=== PATIENT | female | born 1995 | race Caucasian/White ===

== ENCOUNTER 2018-01-24 19:59 | Emergency (ER) | payer BC, OTHER ==
[2018-01-24] MEDS ORDERED: ONDANSETRON 4 MG TAB.RAPDIS PO ONE (20:25)
--- NOTE | 2018-01-24 20:25 | ER Document Report ---
ED Medical Screen (RME) - General Chief Complaint: Diarrhea Stated Complaint: DIARREA Time Seen by Provider: 01/24/18 20:23 Mode of Arrival: Ambulatory Information source: Patient Notes: Patient is a 22-year-old female who presents with chief complaint of vomiting and diarrhea. Patient reports over the last 2 weeks patient has vomited or had diarrhea at least twice a day. Patient reports she is able to hold down water or Gatorade. Patient reports that she has a history of IBS. Patient has been seen at another emergency department, reportedly had a full workup and was told that she has "adult colic". Patient reports last time she vomited was this morning, patient reports having diarrhea 2 hours ago. Exam: Abdomen soft, nontender. Lung sounds clear to auscultation. I have greeted and performed a rapid initial assessment of this patient. A comprehensive ED assessment and evaluation of the patient, analysis of test results and completion of the medical decision making process will be conducted by additional ED providers. Dictation of this chart was performed using voice recognition software; therefore, there may be some unintended grammatical errors. TRAVEL OUTSIDE OF THE [place] IN LAST 30 DAYS: No - Related Data Allergies/Adverse Reactions: cefdinir [From Omnicef] Allergy (Verified 01/24/18 20:06) latex Allergy (Verified 01/24/18 20:06) morphine Allergy (Verified 01/24/18 20:06) nickel Allergy (Verified 01/24/18 20:06) prednisone Allergy (Verified 01/24/18 20:06) red dye Allergy (Verified 01/24/18 20:06) tramadol Allergy (Verified 01/24/18 20:06)
[2018-01-24 21:47] LABS: ABSOLUTE EOSINOPHILS # (AUTO) 0.1 10^3/uL (0.0-0.6); ABSOLUTE LYMPHOCYTES (AUTO) 3.1 10^3/uL (0.5-4.7); ABSOLUTE MONOCYTES (AUTO) 0.7 10^3/uL (0.1-1.4); ABSOLUTE NEUT (AUTO) 5.5 10^3/uL (1.7-8.2); BASOPHILS % (AUTO) 0.5 % (0-2); EOSINOPHILS % (AUTO) 1.5 % (0-6); HEMATOCRIT 39.6 % (36.0-47.0); HEMOGLOBIN 13.2 g/dL (12.0-15.5); LYMPHOCYTES % (AUTO) 32.8 % (13-45); MEAN CORPUSCULAR HEMOGLOBIN 29.5 pg (27.0-33.4); MEAN CORPUSCULAR HGB CONC 33.3 g/dL (32.0-36.0); MEAN CORPUSCULAR VOLUME 89 fl (80-97); MONOCYTES % (AUTO) 7.7 % (3-13); PLATELET COUNT 424 10^3/uL (150-450); RED BLOOD COUNT 4.48 10^6/uL (3.72-5.28); RED CELL DISTRIBUTION WIDTH 13.1 % (11.5-14.0); SEGMENTED NEUTROPHILS % (AUTO) 57.5 % (42-78); TOTAL CELLS COUNTED % (AUTO) 100 %; WHITE BLOOD COUNT 9.6 10^3/uL (4.0-10.5)
[2018-01-24 21:57] LABS: APPEARANCE,URINE CLEAR; BILIRUBIN,URINE NEGATIVE (NEGATIVE); COLOR,URINE YELLOW; GLUCOSE, URINE NEGATIVE (NEGATIVE); KETONES,URINE TRACE mg/dL (NEGATIVE); LEUKOCYTE ESTERASE,URINE NEGATIVE (NEGATIVE); NITRITE,URINE NEGATIVE (NEGATIVE); PROTEIN,URINE NEGATIVE (NEGATIVE); URINE SPECIFIC GRAVITY 1.026; UROBILINOGEN,URINE NEGATIVE mg/dL (<2.0)
[2018-01-24 22:05] LABS: ALANINE AMINOTRANSFERASE 24 U/L (9-52); ALBUMIN 3.9 g/dL (3.5-5.0); ALKALINE PHOSPHATASE 50 U/L (38-126); ANION GAP 13 (5-19); ASPARTATE AMINO TRANSFERASE 26 U/L (14-36); BILIRUBIN,DIRECT 0.2 mg/dL (0.0-0.4); BILIRUBIN,TOTAL 0.2 mg/dL (0.2-1.3); BLOOD UREA NITROGEN 10 mg/dL (7-20); CALCIUM 9.7 mg/dL (8.4-10.2); CARBON DIOXIDE 22 mmol/L (22-30); CHLORIDE 108 mmol/L (98-107); GLUCOSE 92 mg/dL (75-110); LIPASE 221.5 U/L (23-300); POTASSIUM 3.9 mmol/L (3.6-5.0); SODIUM 142.8 mmol/L (137-145); TOTAL PROTEIN 6.8 g/dL (6.3-8.2)
--- NOTE | 2018-01-25 03:11 | ER Document Report ---
ED GI/ - General Chief Complaint: Diarrhea Stated Complaint: DIARRHEA Time Seen by Provider: 01/24/18 20:23 Mode of Arrival: Ambulatory TRAVEL OUTSIDE OF THE [place] IN LAST 30 DAYS: No - HPI Patient complains to provider of: Other - 20-year-old female with history of IBS as well as anxiety since for evaluation of recurrent episodes of crampy abdominal pain and subsequent loose stool, she also notes that there is a staccato buildup of worsening bowel movements abdominal cramps and some nausea associated with it. She has been evaluated for this over the last 3 months several times without any obvious cause being identified. She is normally followed in [place] for her symptoms but decided to present here for another opinion. Nothing is seen to make it any better, eating seems to make it worse. - Related Data Allergies/Adverse Reactions: cefdinir [From Omnicef] Allergy (Verified 01/24/18 20:06) latex Allergy (Verified 01/24/18 20:06) morphine Allergy (Verified 01/24/18 20:06) nickel Allergy (Verified 01/24/18 20:06) prednisone Allergy (Verified 01/24/18 20:06) red dye Allergy (Verified 01/24/18 20:06) tramadol Allergy (Verified 01/24/18 20:06) Past Medical History - General Information source: Patient - Social History Smoking Status: Never Smoker Frequency of alcohol use: Occasional Drug Abuse: None Family History: None Patient has suicidal ideation: No Patient has homicidal ideation: No Neurological Medical History: Reports: Hx Migraine Renal/ Medical History: Denies: Hx Peritoneal Dialysis GI Medical History: Reports: Hx Gastroesophageal Reflux Disease Past Surgical History: Reports: Hx Tonsillectomy - in kindergarten Review of Systems - Review of Systems -: Yes All other systems reviewed and negative Physical Exam - Vital signs Vitals: Temp Pulse Resp BP Pulse Ox 98.6 F 103 H 14 111/78 96 01/25/18 03:27 01/25/18 03:27 01/25/18 03:27 01/25/18 03:27 01/25/18 03:27 - General General appearance: Appears well In distress: None - HEENT Head: Normocephalic Eyes: Normal Conjunctiva: Normal - Respiratory Respiratory status: No respiratory distress, Tripod position Chest status: Nontender Breath sounds: Normal Chest palpation: Normal - Cardiovascular Rhythm: Regular Heart sounds: Normal auscultation Murmur: No - Abdominal Inspection: Normal Distension: No distension Bowel sounds: Normal Tenderness: Other - Diffuse tenderness without any rebound or guarding, - Back Back: Normal - Extremities General upper extremity: Normal inspection General lower extremity: Normal inspection Course - Re-evaluation Re-evalutation: 01/26/18 05:30 This well-appearing 22-year-old female presents for recurrence of abdominal pain with loose watery stools as well as nausea for which she has been evaluated multiple times per Macrina Dooley. Her constellation of symptoms could be attributed to IBS though she is frustrated with this diagnosis. Her urinalysis CMP and CBC are unremarkable at this time her abdominal examination is reassuring and not suggestive of appendicitis cholecystitis or torsion. She is not at this time. She is able to tolerate p.o. The patient's abdominal examination remained reassuring on reevaluation. Given her well appearance ability to tolerate p.o. and benign abdominal examination do not believe there is any indication for imaging at this time. Current plan will be for this patient to undergo discharge with return precautions and encouraged to follow-up, gave prescription for anti-emetics and encouraged to contact her primary physician as well as steam blocker. - Vital Signs Vital signs: Temp Pulse Resp BP Pulse Ox 98.6 F 103 H 14 111/78 96 01/25/18 03:27 01/25/18 03:27 01/25/18 03:27 01/25/18 03:27 01/25/18 03:27 - Laboratory Result Diagrams: 01/24/18 21:29 01/24/18 21:29 Laboratory results interpreted by me: 01/24/18 01/24/18 21:29 21:29 Chloride 108 H Urine Ketones TRACE H Discharge - Discharge Clinical Impression: Abdominal pain Condition: Good Disposition: HOME, SELF-CARE Instructions: Abdominal Pain ([facility]), Antinausea Medication ([facility]), Recurring Abdominal Pain, Child ([facility]) Prescriptions: Dicyclomine HCl [Bentyl 20 mg Tablet] 20 mg PO BID #20 tablet Metoclopramide HCl [Reglan 10 mg Tablet] 10 mg PO BID #20 tablet Ondansetron [Zofran Odt 4 mg Tablet] 1 - 2 tab PO Q4H PRN #15 tab.rapdis PRN Reason: For Nausea/Vomiting
[2018-01-25 03:28] VITALS: BP 111/78
== END 2018-01-25 03:28 | disposition home or self-care (01) ==
LOC: ER 19:59
DX: R10.84 Generalized abdominal pain (principal); R19.7 Diarrhea, unspecified; Z91.040 Latex allergy status; Z88.6 Allergy status to analgesic agent; Z91.09 Other allergy status, other than to drugs and biological substances
CPT/HCPCS: 99284; 36415; 83690; 84703; 85025; 80053; 81001; S0119

== ENCOUNTER → 2018-09-21 | Outpatient (CLI) | payer BC, OTHER ==
[2018-09-21 18:22] LABS: FREE T4 (FREE THYROXINE) 0.91 ng/dL (0.78-2.19)
[2018-09-21 18:35] LABS: THYROID STIMULATING HORMONE 2.71 uIU/mL (0.47-4.68)
== END ==
LOC: OD 16:26
PROVIDERS: ATTEND Obstetrics & Gynecology Gynecology
DX: N91.2 Amenorrhea, unspecified (principal); Z13.29 Encounter for screening for other suspected endocrine disorder
CPT/HCPCS: 36415; 83001; 84146; 84403; 84439; 84443

== ENCOUNTER 2018-12-29 18:43 | Emergency (ER) | payer BC, OTHER ==
[2018-12-29] MEDS ORDERED: NORMAL SALINE 1000 ML 1,000 ML IV ONE (20:42)
[2018-12-29] MEDS ORDERED: PROMETHAZINE HCL 25 MG TABLET PO ONE (20:42)
[2018-12-29] MEDS ORDERED: KETOROLAC TROMETHAMINE INJ/PF 30 MG/1 ML SDV IV ONE (20:42)
--- NOTE | 2018-12-29 20:46 | ER Document Report ---
ED General - General Chief Complaint: Fever Stated Complaint: FEVER Time Seen by Provider: 12/29/18 20:34 Notes: Patient is a 23-year-old female that comes emergency department for chief complaint of approximately 2.5 days of diarrhea, vomiting, fever/chills, body aches, headaches, mid and generalized abdominal pain. She denies cough/shortnes s of breath. She denies dysuria. She does report some pain in her flank on both sides. Past medical history includes PCOS, fibromyalgia, chronic migraines. She has not vomited today and she was able to eat earlier but she states she has had 3 episodes of loose stools today as well. She states she also had a fever earlier today. Only reported surgical history is tonsillectomy. TRAVEL OUTSIDE OF THE [place] IN LAST 30 DAYS: No - Related Data Allergies/Adverse Reactions: cefdinir [From Omnicef] Allergy (Verified 01/24/18 20:06) latex Allergy (Verified 01/24/18 20:06) morphine Allergy (Verified 01/24/18 20:06) nickel Allergy (Verified 01/24/18 20:06) prednisone Allergy (Verified 01/24/18 20:06) red dye Allergy (Verified 01/24/18 20:06) tramadol Allergy (Verified 01/24/18 20:06) Past Medical History - General Information source: Patient - Social History Smoking Status: Never Smoker Frequency of alcohol use: None Drug Abuse: None Lives with: Family Family History: None Patient has suicidal ideation: No Patient has homicidal ideation: No Neurological Medical History: Reports: Hx Migraine Renal/ Medical History: Denies: Hx Peritoneal Dialysis GI Medical History: Reports: Hx Gastroesophageal Reflux Disease Past Surgical History: Reports: Hx Tonsillectomy - in kindergarten - Immunizations Immunizations up to date: Yes Hx Diphtheria, Pertussis, Tetanus Vaccination: Yes Review of Systems - Review of Systems Constitutional: See HPI EENT: No symptoms reported Cardiovascular: No symptoms reported Respiratory: No symptoms reported Gastrointestinal: See HPI Genitourinary: No symptoms reported Female Genitourinary: No symptoms reported Musculoskeletal: No symptoms reported Skin: No symptoms reported Hematologic/Lymphatic: No symptoms reported Neurological/Psychological: No symptoms reported Physical Exam - Vital signs Vitals: Temp Pulse Resp BP Pulse Ox 98.0 F 78 17 112/61 100 12/29/18 19:23 12/29/18 19:23 12/29/18 19:23 12/29/18 19:23 12/29/18 19:23 - Notes Notes: GENERAL: Alert, interacts well. No acute distress. HEAD: Normocephalic, atraumatic. EYES: Pupils equal, round, and reactive to light. Extraocular movements intact. ENT: Oral mucosa dry, tongue midline. Oropharynx unremarkable. Airway patent. Nares patent, no nasal septal hematoma, TM's intact. NECK: Full range of motion. Supple. Trachea midline. LUNGS: Clear to auscultation bilaterally, no wheezes, rales, or rhonchi. No respiratory distress. HEART: Regular rate and rhythm. No murmur ABDOMEN: Soft, non-tender. Non-distended. Bowel sounds present in all 4 quadrants. GENITOURINARY: Deferred EXTREMITIES: Moves all 4 extremities spontaneously. No edema, normal radial and dorsalis pedis pulses bilaterally. No cyanosis. BACK: no cervical, thoracic, lumbar midline tenderness. No saddle anesthesia, normal distal neurovascular exam. Moves all extremities in full range of motion. NEUROLOGICAL: Alert and oriented x3. Normal speech. Cranial nerves II through XII grossly intact. PSYCH: Normal affect, normal mood. SKIN: Warm, dry, normal turgor. No rashes or lesions noted. Course - Re-evaluation Re-evalutation: Patient looks great on exam. Her lung exam, ENT exam, abdominal exam, general exam are all normal. Vital signs unremarkable. She is talkative and well- appearing. CBC unremarkable, bicarb slightly low at 20, urine showing elevated specific gravity but otherwise unremarkable. Consistent with dehydration from suspected viral illness. After IV fluids, patient tolerated p.o. without difficulty. Reevaluated her, she is asymptomatic. Discussed work-up, recommendations, follow-up, and return precautions in detail. Patient states satisfaction and agreement. Stable at time of discharge. - Vital Signs Vital signs: Temp Pulse Resp BP Pulse Ox 98.1 F 68 18 112/62 98 12/29/18 22:55 12/29/18 22:55 12/29/18 22:55 12/29/18 22:55 12/29/18 22:55 - Laboratory Result Diagrams: 12/29/18 20:42 12/29/18 21:01 Laboratory results interpreted by me: 12/29/18 12/29/18 12/29/18 20:42 21:01 21:05 WBC 12.5 H Hgb 11.7 L Hct 35.4 L Carbon Dioxide 20 L Ur Leukocyte Esterase TRACE H Urine Ascorbic Acid 40 H Discharge - Discharge Clinical Impression: Vomiting and diarrhea, Dehydration Fever Qualifiers: Fever type: unspecified Qualified Code(s): R50.9 - Fever, unspecified Condition: Stable Disposition: HOME, SELF-CARE Additional Instructions: Your work-up shows dehydration but no other concerning findings. Your evaluation is reassuring. This is most likely viral and should resolve with time. Rest, drink plenty fluids, take Phenergan if needed for nausea, famotidine to help your recovery, and start with bland food. Follow up with primary care. Return if you worsen -uncontrolled vomiting, severe developing pain of the abdomen, spiking fevers, or any other concerning or wo rsening symptoms. Prescriptions: Famotidine [Pepcid 20 mg Tablet] 20 mg PO BID #14 tablet Promethazine HCl [Phenergan 25 mg Tablet] 25 mg PO Q6H PRN #20 tablet PRN Reason:
[2018-12-29] MEDS ORDERED: KETOROLAC TROMETHAMINE INJ/PF 30 MG/1 ML SDV ONE (20:48)
[2018-12-29] MEDS ORDERED: PROMETHAZINE HCL INJ 25 MG/1 ML VIAL ONE (20:49)
[2018-12-29 21:29] LABS: APPEARANCE,URINE CLOUDY; BILIRUBIN,URINE NEGATIVE (NEGATIVE); COLOR,URINE AMBER; GLUCOSE, URINE NEGATIVE (NEGATIVE); KETONES,URINE NEGATIVE (NEGATIVE); LEUKOCYTE ESTERASE,URINE TRACE (NEGATIVE); NITRITE,URINE NEGATIVE (NEGATIVE); PROTEIN,URINE NEGATIVE (NEGATIVE); URINE SPECIFIC GRAVITY 1.025; UROBILINOGEN,URINE NEGATIVE mg/dL (<2.0)
[2018-12-29 21:32] LABS: ALANINE AMINOTRANSFERASE 28 U/L (9-52); ALBUMIN 4.6 g/dL (3.5-5.0); ALKALINE PHOSPHATASE 71 U/L (38-126); ANION GAP 12 (5-19); ASPARTATE AMINO TRANSFERASE 28 U/L (14-36); BILIRUBIN,DIRECT 0.3 mg/dL (0.0-0.4); BILIRUBIN,TOTAL 0.3 mg/dL (0.2-1.3); BLOOD UREA NITROGEN 12 mg/dL (7-20); CALCIUM 9.7 mg/dL (8.4-10.2); CARBON DIOXIDE 20 mmol/L (22-30); CHLORIDE 107 mmol/L (98-107); GLUCOSE 75 mg/dL (75-110); POTASSIUM 4.7 mmol/L (3.6-5.0); SODIUM 138.8 mmol/L (137-145); TOTAL PROTEIN 7.4 g/dL (6.3-8.2)
[2018-12-29 22:10] LABS: ABSOLUTE BASOPHILS # (AUTO) 0.1 10^3/uL (0.0-0.2); ABSOLUTE EOSINOPHILS # (AUTO) 0.1 10^3/uL (0.0-0.6); ABSOLUTE LYMPHOCYTES (AUTO) 3.7 10^3/uL (0.5-4.7); ABSOLUTE MONOCYTES (AUTO) 0.8 10^3/uL (0.1-1.4); ABSOLUTE NEUT (AUTO) 7.7 10^3/uL (1.7-8.2); BASOPHILS % (AUTO) 0.4 % (0-2); EOSINOPHILS % (AUTO) 1.1 % (0-6); HEMATOCRIT 35.4 % (36.0-47.0); HEMOGLOBIN 11.7 g/dL (12.0-15.5); LYMPHOCYTES % (AUTO) 29.9 % (13-45); MEAN CORPUSCULAR HEMOGLOBIN 28.4 pg (27.0-33.4); MEAN CORPUSCULAR HGB CONC 33.1 g/dL (32.0-36.0); MEAN CORPUSCULAR VOLUME 86 fl (80-97); MONOCYTES % (AUTO) 6.7 % (3-13); PLATELET COUNT 340 10^3/uL (150-450); RED BLOOD COUNT 4.13 10^6/uL (3.72-5.28); RED CELL DISTRIBUTION WIDTH 13.8 % (11.5-14.0); SEGMENTED NEUTROPHILS % (AUTO) 61.9 % (42-78); TOTAL CELLS COUNTED % (AUTO) 100 %; WHITE BLOOD COUNT 12.5 10^3/uL (4.0-10.5)
[2018-12-29 23:01] VITALS: BP 112/62
== END 2018-12-29 23:01 | disposition home or self-care (01) ==
LOC: ER 18:43
DX: R50.9 Fever, unspecified (principal); E86.0 Dehydration; R11.10 Vomiting, unspecified; R19.7 Diarrhea, unspecified
CPT/HCPCS: 99284; 96361; 96374; 36415; 83690; 85025; 81025; 80053; 81001; J1885; J7030

== ENCOUNTER 2019-01-02 18:06 | Emergency (ER) | payer BC, OTHER ==
--- NOTE | 2019-01-02 19:28 | ER Document Report ---
ED General - General Chief Complaint: Abdominal Pain Stated Complaint: ABDOMINAL PAIN,NAUSEA,BODY PAIN Time Seen by Provider: 01/02/19 19:20 Mode of Arrival: Ambulatory Information source: Patient Notes: Patient presents emergency department with complaints of body aches abdominal pain urinary frequency and fever. Reports his fever has run from 100-100.5. Reports she usually has a temperature of 96. Patient reports body aches. Reports she was evaluated here told she had some type of infection but she should get better and not have a fever over 98. TRAVEL OUTSIDE OF THE [place] IN LAST 30 DAYS: No - HPI Onset: Last week Onset/Duration: Persistent Quality of pain: Burning Severity: Moderate Pain Level: 3 Associated symptoms: Fever Exacerbated by: Denies Relieved by: Denies Similar symptoms previously: Yes Recently seen / treated by doctor: Yes - Related Data Allergies/Adverse Reactions: cefdinir [From Omnicef] Allergy (Verified 01/02/19 18:07) latex Allergy (Verified 01/02/19 18:07) morphine Allergy (Verified 01/02/19 18:07) nickel Allergy (Verified 01/02/19 18:07) prednisone Allergy (Verified 01/02/19 18:07) red dye Allergy (Verified 01/02/19 18:07) tramadol Allergy (Verified 01/02/19 18:07) Past Medical History - General Information source: Patient Last Menstrual Period: Last month - Social History Smoking Status: Unknown if Ever Smoked Cigarette use (# per day): No Frequency of alcohol use: None Drug Abuse: None Lives with: Family Family History: None Patient has suicidal ideation: No Patient has homicidal ideation: No Neurological Medical History: Reports: Hx Migraine Renal/ Medical History: Denies: Hx Peritoneal Dialysis GI Medical History: Reports: Hx Gastroesophageal Reflux Disease Past Surgical History: Reports: Hx Tonsillectomy - in kindergarten - Immunizations Immunizations up to date: Yes Hx Diphtheria, Pertussis, Tetanus Vaccination: Yes Review of Systems - Review of Systems Notes: Review HPI for review of systems., All other systems negative Physical Exam - Vital signs Vitals: Temp Pulse Resp BP Pulse Ox 98.2 F 89 20 130/82 H 97 01/02/19 18:16 01/02/19 18:16 01/02/19 18:16 01/02/19 18:16 01/02/19 18:16 - Notes Notes: PHYSICAL EXAMINATION: GENERAL: Well-appearing and in no acute distress HEAD: Atraumatic, normocephalic. EYES: Pupils equal round extraocular movements intact, sclera anicteric, conjunctiva are normal. ENT: nares patent, . Moist mucous membranes. NECK: Normal range of motion, supple without lymphadenopathy LUNGS: CTAB and equal. No wheezes rales or rhonchi. HEART: Regular rate and rhythm without murmurs ABDOMEN: Soft, no tenderness. No guarding, no rebound EXTREMITIES: Normal range of motion, NEUROLOGICAL: Cranial nerves grossly intact. Normal sensory/motor exams. PSYCH: Normal mood, normal affect. SKIN: Warm, Dry, normal turgor, no rashes or lesions noted Course - Re-evaluation Re-evalutation: 01/02/19 20:59 01/02/19 20:01 01/02/19 20:01 MCV 86 fl (80-97) 01/02/19 20:01 MCH 28.1 pg (27.0-33.4) 01/02/19 20: MCHC 32.7 g/dL (32.0-36.0) 01/02/19 20:01 RDW 13.5 % (11.5-14.0) 01/02/19 20:01 Seg Neutrophils % 62.4 % (42-78) 01/02/19 20: Lymphocytes % 29.2 % (13-45) 01/02/19 20:01 Monocytes % 7.0 % (3-13) 01/02/19 20:01 Eosinophils % 1.0 % (0-6) 01/02/19 20: Basophils % 0.4 % (0-2) 01/02/19 20:01 Absolute Neutrophils 7.7 10^3/uL (1.7-8.2) 01/02/19 20:01 Absolute Lymphocytes 3.6 10^3/uL (0.5-4.7) 01/02/19 20:01 Absolute Monocytes 0.9 10^3/uL (0.1-1.4) 01/02/19 20:01 Absolute Eosinophils 0.1 10^3/uL (0.0-0.6) 01/02/19 20:01 Absolute Basophils 0.1 10^3/uL (0.0-0.2) 01/02/19 20:01 Chloride 103 mmol/L (98-107) 01/02/19 20:01 Carbon Dioxide 28 mmol/L (22-30) 01/02/19 20:01 Anion Gap 8 (5-19) 01/02/19 20:01 Est GFR ( Amer) > 60 (>60) 01/02/19 20:01 Est GFR (Non-Af Amer) > 60 (>60) 01/02/19 20: Glucose 65 mg/dL (75-110) L 01/02/19 20: Calcium 10.2 mg/dL (8.4-10.2) 01/02/19 20: Total Bilirubin 0.2 mg/dL (0.2-1.3) 01/02/19 20: AST 21 U/L (14-36) 01/02/19 20: ALT 25 U/L (9-52) 01/02/19 20:01 Alkaline Phosphatase 67 U/L (38-126) 01/02/19 20: Total Protein 7.4 g/dL (6.3-8.2) 01/02/19 20: Albumin 4.7 g/dL (3.5-5.0) 01/02/19 20:01 Urine Color YELLOW 01/02/19 20: Urine Appearance SLIGHTLY-CLOUDY 01/02/19 20: Urine pH 7.0 (5.0-9.0) 01/02/19 20:01 Ur Specific [place] 1.025 01/02/19 20:01 Urine Protein NEGATIVE mg/dL (NEGATIVE) 01/02/19 20: Urine Glucose (UA) NEGATIVE mg/dL (NEGATIVE) 01/02/19 20: Urine Ketones NEGATIVE mg/dL (NEGATIVE) 01/02/19 20:01 Urine Blood NEGATIVE (NEGATIVE) 01/02/19 20: Urine Nitrite NEGATIVE (NEGATIVE) 01/02/19 20:01 Ur Leukocyte Esterase TRACE (NEGATIVE) H 01/02/19 20:01 Urine WBC (Auto) 2 /HPF 01/02/19 20:01 Urine RBC (Auto) 4 /HPF 01/02/19 20:01 Labs unremarkable. Patient has trace leukocytes with some bacteria in her UA. Will be treated for a UTI due to her symptoms with urinary frequency. She was instructed on all results instructed on Macrobid verbalized understanding. Instructed follow-up with her primary care for recheck of urine. She verbalized understanding to all instructions patient nontoxic looking Dictation of this chart was performed using voice recognition software; therefore, there may be some unintended grammatical errors. - Vital Signs Vital signs: Temp Pulse Resp BP Pulse Ox 99.0 F 84 16 124/72 100 01/02/19 20:56 01/02/19 20:56 01/02/19 20:56 01/02/19 20:56 01/02/19 20:56 - Laboratory Result Diagrams: 01/02/19 20:01 01/02/19 20:01 Laboratory results interpreted by me: 01/02/19 01/02/19 01/02/19 20:01 20:01 20:01 WBC 12.3 H Glucose 65 L Ur Leukocyte Esterase TRACE H Urine Ascorbic Acid 40 H Discharge - Discharge Clinical Impression: Urinary frequency, Body aches Abdominal pain Qualifiers: Abdominal location: lower abdomen, unspecified Qualified Code(s): R10.30 - Lower abdominal pain, unspecified Fever Qualifiers: Fever type: unspecified Qualified Code(s): R50.9 - Fever, unspecified UTI (urinary tract infection) Qualifiers: Urinary tract infection type: site unspecified Hematuria presence: without hematuria Qualified Code(s): N39.0 - Urinary tract infection, site not specified Condition: Stable Disposition: HOME, SELF-CARE Instructions: Abdominal Pain ([facility]), Nitrofurantoin ([facility]), Urinary Tract Infection ([facility]) Additional Instructions: *You have been evaluated for fever urinary frequency body aches, UTI *Take medication as prescribed *Push fluids *Follow up with your primary care provider within one week for recheck *Plan urine recheck in one week *Return to ED for worsening condition, changes, needs Monitor your blood pressure. Your blood pressure was elevated today. This may be because you were anxious, in pain or because you need medication. It is important to follow up with your primary care provider for full evaluation. Prescriptions: Nitrofurantoin/Nitrofuran Mac [Macrobid 100 mg Capsule] 100 mg PO BID #20 capsule Forms: Elevated Blood Pressure
[2019-01-02 20:23] LABS: ABSOLUTE BASOPHILS # (AUTO) 0.1 10^3/uL (0.0-0.2); ABSOLUTE EOSINOPHILS # (AUTO) 0.1 10^3/uL (0.0-0.6); ABSOLUTE LYMPHOCYTES (AUTO) 3.6 10^3/uL (0.5-4.7); ABSOLUTE MONOCYTES (AUTO) 0.9 10^3/uL (0.1-1.4); ABSOLUTE NEUT (AUTO) 7.7 10^3/uL (1.7-8.2); BASOPHILS % (AUTO) 0.4 % (0-2); HEMOGLOBIN 12.4 g/dL (12.0-15.5); LYMPHOCYTES % (AUTO) 29.2 % (13-45); MEAN CORPUSCULAR HEMOGLOBIN 28.1 pg (27.0-33.4); MEAN CORPUSCULAR HGB CONC 32.7 g/dL (32.0-36.0); MEAN CORPUSCULAR VOLUME 86 fl (80-97); PLATELET COUNT 430 10^3/uL (150-450); RED BLOOD COUNT 4.41 10^6/uL (3.72-5.28); RED CELL DISTRIBUTION WIDTH 13.5 % (11.5-14.0); SEGMENTED NEUTROPHILS % (AUTO) 62.4 % (42-78); TOTAL CELLS COUNTED % (AUTO) 100 %; WHITE BLOOD COUNT 12.3 10^3/uL (4.0-10.5)
[2019-01-02 20:27] LABS: APPEARANCE,URINE SLIGHTLY-CLOUDY; BILIRUBIN,URINE NEGATIVE (NEGATIVE); COLOR,URINE YELLOW; GLUCOSE, URINE NEGATIVE (NEGATIVE); KETONES,URINE NEGATIVE (NEGATIVE); LEUKOCYTE ESTERASE,URINE TRACE (NEGATIVE); NITRITE,URINE NEGATIVE (NEGATIVE); PROTEIN,URINE NEGATIVE (NEGATIVE); URINE SPECIFIC GRAVITY 1.025; UROBILINOGEN,URINE NEGATIVE mg/dL (<2.0)
[2019-01-02 20:47] LABS: ALANINE AMINOTRANSFERASE 25 U/L (9-52); ALBUMIN 4.7 g/dL (3.5-5.0); ALKALINE PHOSPHATASE 67 U/L (38-126); ANION GAP 8 (5-19); ASPARTATE AMINO TRANSFERASE 21 U/L (14-36); BILIRUBIN,DIRECT 0.2 mg/dL (0.0-0.4); BILIRUBIN,TOTAL 0.2 mg/dL (0.2-1.3); BLOOD UREA NITROGEN 11 mg/dL (7-20); CALCIUM 10.2 mg/dL (8.4-10.2); CARBON DIOXIDE 28 mmol/L (22-30); CHLORIDE 103 mmol/L (98-107); POTASSIUM 4.5 mmol/L (3.6-5.0); SODIUM 138.9 mmol/L (137-145); TOTAL PROTEIN 7.4 g/dL (6.3-8.2)
[2019-01-02] MEDS ORDERED: NITROFURANTOIN MONOHYD/M-CRYST 100 MG CAPSULE PO ONE (20:47)
[2019-01-02 20:49] LABS: GLUCOSE 65 mg/dL (75-110)
[2019-01-02 20:57] VITALS: BP 124/72
== END 2019-01-02 21:02 | disposition home or self-care (01) ==
LOC: ER 18:06
DX: N39.0 Urinary tract infection, site not specified (principal); R10.30 Lower abdominal pain, unspecified; R11.0 Nausea; R35.0 Frequency of micturition; R50.9 Fever, unspecified; M79.10 Myalgia, unspecified site
CPT/HCPCS: 99284; 36415; 85025; 81025; 80053; 81001; J8499

== ENCOUNTER 2019-08-05 22:36 | Emergency (ER) | payer BC, OTHER ==
[2019-08-05 22:44] VITALS: BP 115/86
[2019-08-05] MEDS ORDERED: METHYLPREDNISOLONE 4 MG TABLET PO ONE (23:05)
[2019-08-05] MEDS ORDERED: FAMOTIDINE 20 MG TABLET PO ONE (23:05)
--- NOTE | 2019-08-05 23:10 | ER Document Report ---
ED General - General Chief Complaint: Allergic Reaction Stated Complaint: RASH,ALLERGIC REACTION Primary Care Provider: JENNIE MARTINES PA-C [Primary Care Provider] - Follow up as needed Notes: Patient is a 23-year-old white female with an extensive past medical history who presents to the emergency department with a chief complaint of suspected allergic reaction. The patient reports that she just started a new medication topiramate from her neurologist for migraines. She states that she got a sample pack and has been taking it for about 2 days. She states last night she felt exhausted and "wiped out". She states tonight she was feeling the same way but is noticed the beginnings of a rash on the dorsal hands bilaterally. She admits to generally odd feeling. States this is the only new exposure she has had. She states that she is allergic to prednisone and Benadryl but can take Medrol and has never tried to take Pepcid. She denies any tongue or throat swelling. No difficulty breathing, trouble with secretions or shortness of breath. TRAVEL OUTSIDE OF THE [place] IN LAST 30 DAYS: No - Related Data Allergies/Adverse Reactions: cefdinir [From Omnicef] Allergy (Verified 01/02/19 18:07) latex Allergy (Verified 01/02/19 18:07) morphine Allergy (Verified 01/02/19 18:07) nickel Allergy (Verified 01/02/19 18:07) prednisone Allergy (Verified 01/02/19 18:07) red dye Allergy (Verified 01/02/19 18:07) tramadol Allergy (Verified 01/02/19 18:07) Past Medical History - Social History Smoking Status: Never Smoker Chew tobacco use (# tins/day): No Frequency of alcohol use: None Drug Abuse: None Family History: None Patient has suicidal ideation: No Patient has homicidal ideation: No Neurological Medical History: Reports: Hx Migraine Endocrine Medical History: Reports: Hx Diabetes Mellitus Type 2 - prediabetic Renal/ Medical History: Denies: Hx Peritoneal Dialysis GI Medical History: Reports: Hx Gastroesophageal Reflux Disease Past Surgical History: Reports: Hx Tonsillectomy - in kindergarten - Immunizations Immunizations up to date: Yes Hx Diphtheria, Pertussis, Tetanus Vaccination: Yes Review of Systems - Review of Systems Skin: Rash -: Yes All other systems reviewed and negative Physical Exam - Vital signs Vitals: Temp Pulse Resp BP Pulse Ox 98.1 F 97 16 115/86 H 100 08/05/19 22:42 08/05/19 22:42 08/05/19 22:42 08/05/19 22:42 08/05/19 22:42 - General General appearance: Appears well, Alert In distress: None - HEENT Head: Normocephalic, Atraumatic Eyes: Normal Conjunctiva: Normal Extraocular movements intact: Yes Eyelashes: Normal Pupils: PERRL Ears: Normal External canal: Normal Tympanic membrane: Normal Sinus: Normal Nasal: Normal Mouth/Lips: Normal Mucous membranes: Normal Pharynx: Normal Neck: Normal - Respiratory Respiratory status: No respiratory distress Chest status: Nontender Breath sounds: Normal Chest palpation: Normal - Cardiovascular Rhythm: Regular Heart sounds: Normal auscultation - Neurological Neuro grossly intact: Yes Cognition: Normal Orientation: AAOx4 [place] Coma Scale Eye Opening: Spontaneous [place] Coma Scale Verbal: Oriented [place] Coma Scale Motor: Obeys Commands [place] Coma Scale Total: 15 Speech: Normal Motor strength normal: LUE, RUE, LLE, RLE Sensory: Normal - Psychological Associated symptoms: Normal affect, Normal mood - Skin Skin Temperature: Warm Skin Moisture: Dry Skin Color: Other - Mild macular pink rash to the knuckles dorsally bilateral. No other rash appreciated. Course - Re-evaluation Re-evalutation: 08/05/19 23:09 Patent airway, patient in no acute distress. She will discontinue topiramate. Given a dose of methylprednisolone and Pepcid here. She will monitor the situation tonight, call her neurologist on Wednesday. I advised the importance of outpatient follow-up and advised that she return here or any ER immediately with any new, persistent or worsening symptoms. She verbalized understood and agreed. - Vital Signs Vital signs: Temp Pulse Resp BP Pulse Ox 98.1 F 97 16 115/86 H 100 08/05/19 22:42 08/05/19 22:42 08/05/19 22:42 08/05/19 22:42 08/05/19 22:42 Discharge - Discharge Clinical Impression: Rash and nonspecific skin eruption Condition: Stable Disposition: HOME, SELF-CARE Instructions: Acute Allergic Reaction ([facility]) Additional Instructions: Follow-up with your regular doctor in 2 to 3 days for reevaluation. Return here or any ER immediately with any new, persistent or worsening symptoms. Referrals: JENNIE MARTINES PA-C [Primary Care Provider] - Follow up as needed
[2019-08-05] MEDS ORDERED: METHYLPREDNISOLONE INJ 40 MG/1 ML SDV IM ONE (23:13)
== END 2019-08-05 23:23 | disposition home or self-care (01) ==
LOC: ER 22:36
DX: R21 Rash and other nonspecific skin eruption (principal); G43.909 Migraine, unspecified, not intractable, without status migrainosus; Z88.8 Allergy status to other drugs, medicaments and biological substances; Z88.1 Allergy status to other antibiotic agents; Z91.040 Latex allergy status; Z88.6 Allergy status to analgesic agent; Z88.5 Allergy status to narcotic agent; Z91.048 Other nonmedicinal substance allergy status
CPT/HCPCS: 99283; 96372; J2920

== ENCOUNTER 2019-08-26 20:04 | Emergency (ER) | payer BC ==
[2019-08-26] MEDS ORDERED: NORMAL SALINE 1000 ML 1,000 ML IV ONE (20:21)
--- NOTE | 2019-08-26 20:23 | ER Document Report ---
ED Medical Screen (RME) - General Chief Complaint: Sinus Pain Stated Complaint: SINUS PAIN,COUGH,SORE THROAT Time Seen by Provider: 08/26/19 20:20 Primary Care Provider: CHRISTOPHER GO FNP-C [Primary Care Provider] - Follow up as needed Notes: HPI: 23-year-old female with history of sinus problems presenting for 3 weeks of sinus congestion, in the last 2 days has begun having nausea vomiting as well states she has history of vertigo and always seems to have nausea but has not been able to keep anything down in the last 2 days. Has been having multiple episodes of diarrhea as well. Reports a mildly productive cough as well as a significantly sore throat over the last 1 to 2 weeks.Patient is concerned about dehydration I have greeted and performed a rapid initial assessment of this patient. A comprehensive ED assessment and evaluation of the patient, analysis of test results and completion of the medical decision making process will be conducted by additional ED providers PHYSICAL EXAMINATION: GENERAL: Well-appearing, well-nourished and in mild acute distress. HEAD: Atraumatic, normocephalic. EYES: sclera anicteric, conjunctiva are normal. ENT: Moist mucous membranes. Mild pharyngeal erythema is noted NECK: Normal range of motion LUNGS: Normal work of breathing, clear to auscultation HEART: 2+ radial pulses bilaterally, mild tachycardia ABD: limited by positioning for exam in triage. EXTREMITIES: no pitting or edema. No cyanosis. NEUROLOGICAL: No focal neurological deficits. Moves all extremities spontaneously and on command. PSYCH: Normal mood, normal affect. SKIN: Warm, Dry, normal turgor, no rashes or lesions noted. TRAVEL OUTSIDE OF THE [place] IN LAST 30 DAYS: No - Related Data Allergies/Adverse Reactions: cefdinir [From Omnicef] Allergy (Verified 01/02/19 18:07) latex Allergy (Verified 01/02/19 18:07) morphine Allergy (Verified 01/02/19 18:07) nickel Allergy (Verified 01/02/19 18:07) prednisone Allergy (Verified 01/02/19 18:07) red dye Allergy (Verified 01/02/19 18:07) topiramate [From Trokendi XR] Allergy (Verified 08/26/19 20:11) tramadol Allergy (Verified 01/02/19 18:07) Past Medical History - Social History Frequency of alcohol use: None Drug Abuse: None Neurological Medical History: Reports: Hx Migraine Endocrine Medical History: Reports: Hx Diabetes Mellitus Type 2 - prediabetic Renal/ Medical History: Denies: Hx Peritoneal Dialysis GI Medical History: Reports: Hx Gastroesophageal Reflux Disease Past Surgical History: Reports: Hx Tonsillectomy - in kindergarten - Immunizations Immunizations up to date: Yes Hx Diphtheria, Pertussis, Tetanus Vaccination: Yes Physical Exam - Vital signs Vitals: Temp Pulse Resp BP Pulse Ox 97.6 F 103 H 16 120/70 96 08/26/19 20:08 08/26/19 20:08 08/26/19 20:08 08/26/19 20:08 08/26/19 20:08 Course - Vital Signs Vital signs: Temp Pulse Resp BP Pulse Ox 97.6 F 103 H 16 120/70 96 08/26/19 20:08 08/26/19 20:08 08/26/19 20:08 08/26/19 20:08 08/26/19 20:08 Doctor's Discharge - Discharge Referrals: CHRISTOPHER GO FNPJovanC [Primary Care Provider] - Follow up as needed
[2019-08-26 20:56] LABS: ABSOLUTE EOSINOPHILS # (AUTO) 0.4 10^3/uL (0.0-0.6); ABSOLUTE MONOCYTES (AUTO) 0.8 10^3/uL (0.1-1.4); RED CELL DISTRIBUTION WIDTH 16.4 % (11.5-14.0); TOTAL CELLS COUNTED % (AUTO) 100 %
[2019-08-26 21:05] LABS: APPEARANCE,URINE SLIGHTLY-CLOUDY; BILIRUBIN,URINE NEGATIVE (NEGATIVE); COLOR,URINE YELLOW; GLUCOSE, URINE NEGATIVE (NEGATIVE); KETONES,URINE NEGATIVE (NEGATIVE); LEUKOCYTE ESTERASE,URINE NEGATIVE (NEGATIVE); NITRITE,URINE NEGATIVE (NEGATIVE); PROTEIN,URINE NEGATIVE (NEGATIVE); URINE SPECIFIC GRAVITY 1.017; UROBILINOGEN,URINE NEGATIVE mg/dL (<2.0)
--- NOTE | 2019-08-26 21:06 | RADIOLOGY REPORT (SQ) ---
EXAM DESCRIPTION: XR CHEST 2 VIEWS COMPLETED DATE/TME: 08/26/2019 20:20 CLINICAL HISTORY: 23 years, Female, cough Comparison: None FINDINGS: No focal lung consolidation. No pleural effusion. No pneumothorax. Cardiac and mediastinal silhouette is unremarkable. No acute osseous abnormality. Soft tissues are unremarkable. IMPRESSION: No acute findings. No focal lung consolidation.
[2019-08-26 21:10] LABS: ABSOLUTE NEUT (AUTO) 7.5 10^3/uL (1.7-8.2); BASOPHILS % (AUTO) 0.4 % (0-2); EOSINOPHILS % (AUTO) 3.2 % (0-6); HEMATOCRIT 34.9 % (36.0-47.0); HEMOGLOBIN 11.8 g/dL (12.0-15.5); LYMPHOCYTES % (AUTO) 25.8 % (13-45); MEAN CORPUSCULAR HEMOGLOBIN 28.1 pg (27.0-33.4); MEAN CORPUSCULAR HGB CONC 33.9 g/dL (32.0-36.0); MEAN CORPUSCULAR VOLUME 83 fl (80-97); MONOCYTES % (AUTO) 6.6 % (3-13); PLATELET COUNT 477 10^3/uL (150-450); RED BLOOD COUNT 4.21 10^6/uL (3.72-5.28); WHITE BLOOD COUNT 11.6 10^3/uL (4.0-10.5)
[2019-08-26 21:15] LABS: ALBUMIN 4.6 g/dL (3.5-5.0); ALKALINE PHOSPHATASE 86 U/L (38-126); ANION GAP 8 (5-19); ASPARTATE AMINO TRANSFERASE 24 U/L (14-36); BILIRUBIN,TOTAL 0.3 mg/dL (0.2-1.3); BLOOD UREA NITROGEN 14 mg/dL (7-20); CALCIUM 9.6 mg/dL (8.4-10.2); CARBON DIOXIDE 29 mmol/L (22-30); CHLORIDE 102 mmol/L (98-107); GLUCOSE 80 mg/dL (75-110); POTASSIUM 4.9 mmol/L (3.6-5.0); TOTAL PROTEIN 7.4 g/dL (6.3-8.2)
[2019-08-26] MEDS ORDERED: DOXYCYCLINE HYCLATE 100 MG TABLET PO ONE (22:40)
[2019-08-26] MEDS ORDERED: ONDANSETRON ODT 4 MG TAB (6 TAB/ER DISP) PO PRN (22:40)
--- NOTE | 2019-08-26 22:45 | ER Document Report ---
ED General - General Chief Complaint: Sinus Pain Stated Complaint: SINUS PAIN,COUGH,SORE THROAT Time Seen by Provider: 08/26/19 20:20 Primary Care Provider: CHRISTOPHER GO FNP-C [Primary Care Provider] - Follow up as needed TRAVEL OUTSIDE OF THE [place] IN LAST 30 DAYS: No - HPI Notes: 23-year-old female who reports prior history of chronic recurrent sinus infections. Patient started out what sounds like a viral illness about 2 weeks ago. She has been self-medicating with [id number] medications. She perceives that she is getting worse and having thick postnasal drainage and this causes her to cough and choke resulting in posttussive emesis. Multiple allergi es are noted. Subjective fever at home but none here. - Related Data Allergies/Adverse Reactions: cefdinir [From Omnicef] Allergy (Verified 01/02/19 18:07) latex Allergy (Verified 01/02/19 18:07) morphine Allergy (Verified 01/02/19 18:07) nickel Allergy (Verified 01/02/19 18:07) prednisone Allergy (Verified 01/02/19 18:07) red dye Allergy (Verified 01/02/19 18:07) topiramate [From Trokendi XR] Allergy (Verified 08/26/19 20:11) tramadol Allergy (Verified 01/02/19 18:07) Past Medical History - General Information source: Patient, Relative - Social History Smoking Status: Never Smoker Frequency of alcohol use: None Drug Abuse: None Family History: None Patient has suicidal ideation: No Patient has homicidal ideation: No Neurological Medical History: Reports: Hx Migraine Endocrine Medical History: Reports: Hx Diabetes Mellitus Type 2 - prediabetic Renal/ Medical History: Denies: Hx Peritoneal Dialysis GI Medical History: Reports: Hx Gastroesophageal Reflux Disease Past Surgical History: Reports: Hx Tonsillectomy - in kindergarten - Immunizations Immunizations up to date: Yes Hx Diphtheria, Pertussis, Tetanus Vaccination: Yes Review of Systems - Review of Systems Notes: Constitutional: As per HPI. HENT: As per HPI. Eyes: Negative for visual changes. Cardiovascular: Negative for chest pain. Respiratory: As per HPI. Gastrointestinal: As per HPI. Genitourinary: Negative for dysuria. Musculoskeletal: Negative for back pain. Skin: Negative for rash. Neurological: Negative for focal weakness or numbness. 10 point ROS negative except as marked above and in HPI. Physical Exam - Vital signs Vitals: Temp Pulse Resp BP Pulse Ox 97.6 F 103 H 16 120/70 96 08/26/19 20:08 08/26/19 20:08 08/26/19 20:08 08/26/19 20:08 08/26/19 20:08 - Notes Notes: GENERAL: Well-developed well-nourished appearing in no acute distress. SKIN: Good turgor no rashes. HEAD: Normocephalic atraumatic. Diffuse sinus tenderness to percussion. EYES: PERRLA. EOMI. Conjunctivae and sclerae clear. EARS: CANALS AND TMS CLEAR. NOSE: Boggy nasal turbinates and green drainage bilaterally. MOUTH: Moist mucosa. Good dentition. No stridor or edema. No drooling. Patient is hoarse. Throat: Injected without exudate. NECK: Supple. No masses or thyromegaly. No adenopathy. Carotids 2+ without bruits. No JVD. BACK: Symmetrical without tenderness. CHEST: Respirations unlabored. Breath sounds clear and symmetrical. HEART: Regular rhythm. No murmur gallop or rub. ABDOMEN: Soft nontender without masses, organomegaly or rebound. Bowel sounds normally active. No bruits. GENITALIA: Deferred. EXTREMITIES: No edema. No calf tenderness. Cap refill less than 1.5 seconds. Dorsalis pedis and posterior tibial pulses 3+ and symmetrical. NEUROLOGICAL: GCS 15. Alert and oriented x3. Normal gait. Fluent speech. Cranial nerves II through XII intact. Sensorimotor and cerebellar normal. Normal tone. PSYCHIATRIC: Appropriate affect. Course - Re-evaluation Re-evalutation: 08/26/19 22:44 Strep test was negative. CBC and chemistry profile unremarkable. Chest x-ray shows no focal infiltrate per radiologist. Options were discussed with the patient. We agree that we will treat her as an outpatient with doxycycline and burst of prednisone. I am also going to give her some Zofran. Instructed to push p.o. fluids and return here as needed for new or worsening symptoms with follow-up otherwise to be provided by her primary care physician if she is not improved within the next 2 to 3 days. - Vital Signs Vital signs: Temp Pulse Resp BP Pulse Ox 97.6 F 103 H 16 120/70 96 08/26/19 20:08 08/26/19 20:08 08/26/19 20:08 08/26/19 20:08 08/26/19 20:08 - Laboratory Result Diagrams: 08/26/19 20:30 08/26/19 20:30 Laboratory results interpreted by me: 08/26/19 08/26/19 20:30 20:30 WBC 11.6 H Hgb 11.8 L Hct 34.9 L RDW 16.4 H Plt Count 477 H Urine Ascorbic Acid 40 H Discharge - Discharge Clinical Impression: Acute sinusitis Qualifiers: Sinusitis location: pansinusitis Recurrence: recurrent Qualified Code(s): J01.41 - Acute recurrent pansinusitis Condition: Stable Disposition: HOME, SELF-CARE Additional Instructions: Sinusitis You have sinusitis, an infection of the sinus cavities of the face. The sinuses are air-filled chambers which open into the inside of the nose. Bacteria and pus fill a sinus, causing pain, drainage, and fever. Sinusitis is treated with antibiotics. Often, expectorants (to thin the sinus mucous) or decongestants (to reduce swelling) are prescribed as well. Healing requires seven to 10 days. Avoid chemical fumes, pollens, dusts, and smoke (especially cigarette smoke). Keep the air humidified in your bedroom and work area and take plenty of liquids by mouth. This condition can be serious if the infection spreads. If your symptoms worsen, or if you develop severe headache, high fever, stiff neck, or a rash, you must call the doctor or return for re-evaluation. Increase your fluids Take prescribed medications as directed See your doctor if you are not seeing some improvement over the next 2 to 3 days. Return here as needed for new or worsening symptoms. Prescriptions: Prednisone [Deltasone 20 mg Tablet] 2 tab PO DAILY 5 Days tablet Doxycycline Monohydrate 100 mg PO BID #20 capsule Referrals: CHRISTOPHER GO FNP-C [Primary Care Provider] - Follow up as needed
[2019-08-26 22:54] VITALS: BP 123/81
== END 2019-08-26 23:02 | disposition home or self-care (01) ==
LOC: ER 20:04
DX: J01.41 Acute recurrent pansinusitis (principal); R09.82 Postnasal drip; R05 Cough; R11.10 Vomiting, unspecified; R49.0 Dysphonia; Z88.1 Allergy status to other antibiotic agents; Z91.040 Latex allergy status; Z88.6 Allergy status to analgesic agent; Z88.5 Allergy status to narcotic agent; Z91.048 Other nonmedicinal substance allergy status; Z88.8 Allergy status to other drugs, medicaments and biological substances
CPT/HCPCS: 36415; 71046; 80053; 81001; 85025; 87070; 87880; 99283

== ENCOUNTER 2020-02-04 13:14 | Emergency (ER) | payer BC ==
--- NOTE | 2020-02-04 13:54 | ER Document Report ---
ED Extremity Problem, Lower - General Chief Complaint: Fall Injury Stated Complaint: FALL,RIGHT ANKLE PAIN Time Seen by Provider: 02/04/20 13:48 Primary Care Provider: [facility] [Provider Group] - Follow up as needed CHRISTOPHER GO FNP-C [Primary Care Provider] - Follow up as needed Mode of Arrival: Ambulatory Information source: Patient Notes: 24-year-old female presents to ED for complaint of right ankle injury yesterday. She states she twisted her ankle and heard a loud pop. She states she is tried using ice and elevation and wraps and it is not getting better. She is come to the emergency room to see what she has done to her ankle. She states she tried to go to urgent care and they told her she needed to come to the emergency room for x-rays. Constitutional: Negative for fever. HENT: Negative for sore throat. Eyes: Negative for visual changes. Cardiovascular: Negative for chest pain. Respiratory: Negative for shortness of breath. Gastrointestinal: Negative for abdominal pain, vomiting or diarrhea. Genitourinary: Negative for dysuria. Musculoskeletal: Patient has pain to the right ankle. She has pain with eversion and inversion to the ankle. She is able to walk at this time. Skin: Negative for rash. Neurological: Negative for headaches, weakness or numbness. 10 point ROS negative except as marked above and in HPI. VITAL SIGNS: Within normal limits. GENERAL: No acute distress, non-toxic appearance. HEAD: Normal with no signs of head trauma. EYES: PERRLA, EOMI, conjunctiva normal, no discharge. EARS: Hearing grossly intact. NOSE: Normal. THROAT: Oropharynx is normal. NECK: Normal range of motion, no tenderness, supple, no lymphadenopathy, No adenopathy, no JVD. CHEST: Clear breath sounds bilaterally. No wheezes, rales, or rhonchi. CARDIAC: Regular rate and rhythm. S1 and S2, without murmurs, gallops, or rubs. VASCULAR: No Edema. Peripheral pulses normal and equal in all extremities. ABDOMEN: Normal and soft with no tenderness, no masses or pulsatile masses. GASTROINTESTINAL: Bowel sounds normal GENITOURINARY: Normal, No tenderness LYMPATHTIC: No lymphadenopathy noted. MUSCULOSKELETAL: Right ankle pain swelling and bruising. She has full range of motion but with pain. She is ambulating with a even steady gait NEUROLOGICAL: Alert and oriented x 3. No focal sensory or strength deficits. Speech normal. Follows commands appropriately. PSYCHIATRIC: Normal Affect, judgement and mood. SKIN: Normal appearance with no rashes or lesions. TRAVEL OUTSIDE OF THE [place] IN LAST 30 DAYS: No - HPI Patient complains to provider of: Injury, Pain, Swelling Location: Ankle Occurred: Yesterday Where: Home, Indoors Onset/Duration: Persistent Quality of pain: Achy, Pressure Severity: Moderate Pain Level: 3 Context: Twisted Recent injury: Yes Associated symptoms: Emmet a pop. denies: Unable to bear weight Exacerbated by: Movement, Walking Relieved by: Ice, Rest - Related Data Allergies/Adverse Reactions: cefdinir [From Omnicef] Allergy (Verified 01/02/19 18:07) latex Allergy (Verified 01/02/19 18:07) morphine Allergy (Verified 01/02/19 18:07) nickel Allergy (Verified 01/02/19 18:07) prednisone Allergy (Verified 01/02/19 18:07) red dye Allergy (Verified 01/02/19 18:07) topiramate [From Trokendi XR] Allergy (Verified 08/26/19 20:11) tramadol Allergy (Verified 01/02/19 18:07) Past Medical History - General Information source: Patient - Social History Smoking Status: Never Smoker Frequency of alcohol use: None Drug Abuse: None Lives with: Family Family History: None Patient has suicidal ideation: No Patient has homicidal ideation: No - Past Medical History Cardiac Medical History: Reports: None Pulmonary Medical History: Reports: None EENT Medical History: Reports: None Neurological Medical History: Reports: Hx Migraine Endocrine Medical History: Reports: Hx Diabetes Mellitus Type 2 - prediabetic Renal/ Medical History: Reports: None Malignancy Medical History: Reports: None GI Medical History: Reports: Hx Gastroesophageal Reflux Disease Musculoskeletal Medical History: Reports Hx Musculoskeletal Deformity, Reports Hx Musculoskeletal Trauma Skin Medical History: Reports None Psychiatric Medical History: Reports: None Traumatic Medical History: Reports: None Infectious Medical History: Reports: None Past Surgical History: Reports: Hx Tonsillectomy - in kindergarten - Immunizations Immunizations up to date: Yes Hx Diphtheria, Pertussis, Tetanus Vaccination: Yes Physical Exam - Vital signs Vitals: Temp Pulse Resp BP Pulse Ox 98.4 F 71 20 106/64 100 02/04/20 13:25 08/16/20 13:25 02/04/20 13:25 02/04/20 13:25 02/04/20 13:25 Course - Re-evaluation Re-evalutation: 02/04/20 22:14 The patient is nontoxic appearing with stable vitals. They are afebrile. Ankle exam shows no deformities with no obvious ligament instability. There is a normal pulse and sensation distally. There is no redness or signs of infection. X-rays show no acute fracture per the radiologist. Patient will be placed in an Cruz wrap for comfort. Crutches will be offered and given if requested. Pat ient will be instructed to follow-up with not better in 1 week, sooner for increasing pain, fever, redness, numbness, tingling, weakness, any further concerns. Patient will be instructed to rest, ice, elevate their ankle. - Vital Signs Vital signs: Temp Pulse Resp BP Pulse Ox 98.2 F 55 L 16 104/72 99 02/04/20 15:37 02/04/20 15:37 02/04/20 15:37 02/04/20 15:41 02/04/20 15:37 - Diagnostic Test Radiology reviewed: Image reviewed, Reports reviewed Procedures - Immobilization Right Ankle Time completed: 15:43 Pre-Proc Neuro Vasc Exam: Normal Immobilizer type: Cruz wrap, Ankle stirrup, Crutches Performed by: PCT Post-Proc Neuro Vasc Exam: Normal Alignment checked and good: Yes Discharge - Discharge Clinical Impression: Right ankle sprain Qualifiers: Encounter type: initial encounter Involved ligament of ankle: unspecified ligament Qualified Code(s): S93.401A - Sprain of unspecified ligament of right ankle, initial encounter Condition: Stable Disposition: HOME, SELF-CARE Additional Instructions: SPRAINED ANKLE: Your sprained ankle results from stretching or tearing of the ligaments which support the ankle. This usually results from twisting the foot inward and under. The ligaments will require time and protection in order to heal properly. Many ankle sprains are quite disabling, and should be taken seriously. The usual treatment for an ankle sprain is cold packs; protection with tape, splints, or wraps; elevation; and staying off the ankle for at least a day. As the ankle improves, you can walk IF it's not painful to bear weight. Sports are best postponed until healing is complete. More serious sprains usually require strengthening exercises after early healing. Your physician has assessed the seriousness of the ligament injury to your ankle. However, the treatment may change, depending on how your ankle progresses. If further exams were recommended, it is important that you follow through. Call the doctor if your foot becomes numb, painful, or severely swollen. ANKLE STIRRUP SPLINT: You are to use an ankle brace called a stirrup splint. This type of brace allows you to place greater stresses on the ankle without risk of re-injury, and is often used for more severe ankle injuries such as avulsion fractures and ligament ruptures. The splint can be worn over a sock or tape. For proper support, wear the splint with a shoe over it. It's important that the splint fit properly. Adjust the heel tension, if needed. If your splint has air bladders, peel back the bottom of each air bladder, then move the Velcro attachment of the heel strap up or down. Air bladder pressure can be adjusted by pulling up the valve at the top, threading the air tube down into the main bladder, then blowing air into the bladder or squeezing it out. The two sides of the stirrup can be moved forward or back on your ankle by changing the attachment of the main straps. If you are unable to use the ankle comfortably in the splint, return for re-evaluation. CRUZ WRAP: A compression dressing (cruz wrap) has been placed. This helps hold the area still. It limits swelling and internal bleeding. The wrap should be comfortably snug -- not tight. You should feel a sense of pressure, but not severe pain under the wrap. Unless the physician tells you otherwise, you can adjust the wrap for comfort. If the wrap causes symptoms suggesting it's too tight -- uncomfortable pressure, swelling or discoloration beyond the wrap, numbness, or severe pain -- you must loosen the wrap. If these symptoms don't resolve promptly, return for re-evaluation. USE OF CRUTCHES: The doctor has recommended that you not bear weight at this time. You will need to use crutches. Adjust the crutches so the tops come to about two inches under the armpit while you are standing upright. Use your hands -- not your armpits -- to support your weight. To get into a chair, support yourself with one crutch on the injured side. Hold the chair with the other hand, then lower yourself while putting all your weight on the good leg. Going up stairs is `good leg up, step up, then bring up crutches and bad leg.' Down stairs is `bad leg and crutches down, then bring good leg down.' If you develop numbness or swelling in an arm or hand, you are using the crutches incorrectly. Return if you are having any problems with the crutches. ICE & ELEVATION: Apply ice packs frequently against the painful area. Many different schedules are recommended, such as "20 minutes on, 20 minutes off" or "one hour ice, two hours rest." If you need to work, you may need to go longer between ice treatments. You should plan to have the area ice packed AT LEAST one-fourth of the time. The ice should be applied over the wrap, tape, or splint, or over a layer of cloth -- not directly against the skin. Some ice bags have a built-in cloth and can be put directly on the skin. Your injured part should be elevated as much as possible over the next 48 hours. Try to keep the injury above the level of the heart. Avoid use of the injured area. Elevation and rest will decrease the swelling. USE OF [id number]-[id number] IBUPROFEN: Ibuprofen (Advil, Nuprin, Medipren, Motrin IB) is a medication for fever and pain control. In addition, it has anti- inflammatory effects which may be beneficial, especially in the treatment of injuries. It's best to take ibuprofen with food. Persons with ulcer disease or allergy to aspirin should notify their physician of this before taking ibuprofen. Ibuprofen can be given every four to six hours, for a total of four doses daily. Age Pain or fever dose Antiinflammatory dose 6-8 yr 200 mg (1 tab) 200 mg (1 tab) 9-11 yr 200 mg (1 tab) 200-400 mg (1-2 tab) 11-14 yr 200-400 mg (1-2 tab) 400 mg (2 tab) 15-adult 400 mg (2 tab) 600 mg (3 tab) FOLLOW-UP CARE: If you have been referred to a physician for follow-up care, call the physicians office for an appointment as you were instructed or within the next two days. If you experience worsening or a significant change in your symptoms, notify the physician immediately or return to the Emergency Department at any time for re-evaluation. When calling for follow-up appointment for orthopedics please ask for Dr. Cavanaugh Forms: Return to Work Referrals: CHRISTOPHER GO FNP-C [Primary Care Provider] - Follow up as needed [facility] [Provider [facility]] - Follow up as needed
--- NOTE | 2020-02-04 15:16 | RADIOLOGY REPORT (SQ) ---
EXAM DESCRIPTION: ANKLE RIGHT COMPLETE IMAGES COMPLETED DATE/TIME: 02/04/2020 2:33 pm REASON FOR STUDY: Pain and fall hurt a pop COMPARISON: None. NUMBER OF VIEWS: Three views. TECHNIQUE: AP, lateral, and oblique radiographic images acquired of the right ankle. LIMITATIONS: None. FINDINGS: MINERALIZATION: Normal. BONES: No acute fracture or dislocation. No worrisome bone lesions. JOINTS: No effusions. SOFT TISSUES: No soft tissue swelling. No foreign body. OTHER: No other significant finding. IMPRESSION: NEGATIVE STUDY OF THE RIGHT ANKLE. NO RADIOGRAPHIC EVIDENCE OF ACUTE INJURY. TECHNICAL DOCUMENTATION: JOB ID: [id number] 2010 [employer]- All Rights Reserved Reading location - IP/workstation name: [email or web address]
[2020-02-04 15:43] VITALS: BP 104/72
== END 2020-02-04 15:43 | disposition home or self-care (01) ==
LOC: ER 13:14
PROC: 2W3QX1Z Immobilization of Right Lower Leg using Splint (ICD-10-PCS; principal; 2020-02-04)
DX: S93.401A Sprain of unspecified ligament of right ankle, initial encounter (principal); M25.571 Pain in right ankle and joints of right foot; X50.1XXA Overexertion from prolonged static or awkward postures, initial encounter; Z88.8 Allergy status to other drugs, medicaments and biological substances; R73.03 Prediabetes
CPT/HCPCS: 99283

== ENCOUNTER 2020-04-09 02:31 | Emergency (ER) | payer BC | END 2020-04-09 05:43 | disposition left against medical advice (07) | LOC: ER 02:31 | DX: Z53.21 Procedure and treatment not carried out due to patient leaving prior to being seen by health care provider (principal); R10.9 Unspecified abdominal pain ==

== ENCOUNTER → 2020-04-23 | Outpatient (CLI) | payer BC ==
[2020-04-23 18:15] LABS: C-REACTIVE PROTEIN 5.9 mg/L (<10.0)
== END ==
LOC: OD 16:17
PROVIDERS: ATTEND Family Medicine
DX: M25.50 Pain in unspecified joint (principal)
CPT/HCPCS: 36415; 85652; 86038; 86140; 86431; 86617; 86618